=== PATIENT | male | born 1950 ===

== ENCOUNTER 2021-05-23 07:21 | Day surgery (SDC) | payer OTHER ==
[2021-05-23] MEDS ORDERED: PERCOCET 5-3251 EACH PO (11:40)
== END 2021-05-23 15:55 | disposition home or self-care (01) ==
LOC: CIR.AMB 07:21
PROVIDERS: ATTEND Surgery
DX: D35.1 Benign neoplasm of parathyroid gland (principal); Z20.822 Contact with and (suspected) exposure to COVID-19